=== PATIENT | male | born 1955 | race Caucasian/White ===

== ENCOUNTER 2021-05-12 18:34 | Inpatient (IN) | payer OTHER, MEDICARE ==
[~2021-05-12] VITALS: Ht 172.7 cm; Wt 84.0 kg
[2021-05-12 20:01] LABS: BASOPHILS % (AUTO) 0.7 % (0.0-2.0); EOSINOPHILS % (AUTO) 1.7 % (1.0-6.0); HEMATOCRIT 43.7 % (41-53); HEMOGLOBIN 14.8 g/dL (13.5-17.5); LYMPHOCYTES # (AUTO) 1.8 K/uL (1.0-4.8); LYMPHOCYTES % (AUTO) 31.1 % (22.0-44.0); MEAN CORPUSCULAR HEMOGLOBIN 31.1 pg (26.0-34.0); MEAN CORPUSCULAR VOLUME 91 fL (80-100); MONOCYTES # (AUTO) 0.3 K/uL (0.1-1.0); MONOCYTES % (AUTO) 5.5 % (2.0-9.0); NEUTROPHILS # (AUTO) 3.5 K/uL (1.8-7.7); PLATELET COUNT (AUTO) 191 K/uL (150-450); RED BLOOD CELL COUNT(AUTO) 4.78 MIL/uL (4.50-5.90); RED CELL DISTRIBUTION WIDTH 13.5 % (11.5-14.5)
[2021-05-12 20:08] LABS: ANION GAP 7 mmol/L (8-16); CALCIUM, TOTAL 9.1 mg/dL (8.8-10.5); CARBON DIOXIDE 26 mmol/L (22-29); CHLORIDE 104 mmol/L (98-107); CREATININE 0.73 mg/dL (0.60-1.30); GLOMERULAR FILTR. RATE CALC > 60 mL/min (>60); GLUCOSE,RANDOM 125 mg/dL (70-110); POTASSIUM 3.5 mmol/L (3.5-5.1); SODIUM SERUM 137 mmol/L (136-145); UREA NITROGEN, BLOOD 13 mg/dL (7-18)
[2021-05-12 20:14] LABS: ACETAMINOPHEN 11 mcg/mL (10-30); ALANINE AMINOTRANSFERASE 31 U/L (12-78); ALBUMIN 4.1 g/dL (3.4-5.0); ALKALINE PHOSPHATASE 71 U/L (46-116); ASPARTATE AMINOTRANSFERASE 16 U/L (15-37); BILIRUBIN,TOTAL 1.4 mg/dL (0.1-1.0); TOTAL PROTEIN, SERUM 7.4 g/dL (6.4-8.2)
[2021-05-12 20:32] LABS: SALICYLATE < 2.8 mg/dL (2.8-20.0)
[2021-05-12 20:36] LABS: COVID AG,FIA SOURCE NASOPHARYNGEAL
[2021-05-12 20:45] LABS: AMPHET/METH SCREEN,URINE NEGATIVE (NEGATIVE); BARBITURATE SCREEN, URINE NEGATIVE (NEGATIVE); BENZODIAZEPINES SCREEN,URINE NEGATIVE (NEGATIVE); CANNABINOID SCREEN,URINE NEGATIVE (NEGATIVE); COCAINE SCREEN,URINE NEGATIVE (NEGATIVE); METHADONE SCREEN, URINE NEGATIVE (NEGATIVE); OPIATE SCREEN,URINE POSITIVE (NEGATIVE); PHENCYCLIDINE SCREEN,URINE NEGATIVE (NEGATIVE)
[2021-05-12] MEDS ORDERED: LORazepam 2 MG TABLET PO PRN (22:30)
[2021-05-12] MEDS ORDERED: OLANZapine 5 MG RAPDIS TABLET PO PRN (22:30)
[2021-05-12] MEDS ORDERED: ZOLPIDEM TARTRATE 10 MG TABLET PO PRN (22:30)
[2021-05-12] MEDS ORDERED: MELATONIN 3 MG TABLET PO ONE (23:30)
[2021-05-13 00:25] LABS: CHOL/HDL RATIO 3.1 (4.2-7.3); CHOLESTEROL 152 mg/dL (131-200); HDL CHOLESTEROL 49 mg/dL (40-60); LDL CHOL (CALC.) 88 mg/dL (0-130); TRIGLYCERIDES 73 mg/dL (15-150)
[2021-05-13 00:26] LABS: APPEARANCE,URINE CLEAR (CLEAR); BILIRUBIN,URINE NEGATIVE (NEGATIVE); GLUCOSE, URINE (UA) NEGATIVE (NEGATIVE); KETONES,URINE 15 mg/dL (NEGATIVE); LEUKOCYTE ESTERASE ,URINE NEGATIVE (NEGATIVE); NITRATE,URINE NEGATIVE (NEGATIVE); OCCULT BLOOD,URINE NEGATIVE (NEGATIVE); PROTEIN,URINE NEGATIVE (NEGATIVE); UROBILINOGEN,URINE 0.2 mg/dL (<=1.0)
[2021-05-13] MEDS ORDERED: MAG HYDROX/AL HYDROX/SIMETH ES 30 ML SUSPENSION UDCUP PO PRN ×2 (15:15→15:30)
[2021-05-13] MEDS ORDERED: HydrOXYzine PAMOATE 50 MG CAPSULE PO PRN ×2 (15:15→15:30)
[2021-05-13] MEDS ORDERED: GuaiFENesin/D-METHORPHAN [SUGAR-FREE] 200-20MG/10 ML SYRUP UDCUP PO PRN ×2 (15:15→15:30)
[2021-05-13] MEDS ORDERED: TUBERCULIN, PURIFIED PROTEIN DERIVATIVE 5 TU/0.1 ML SYRINGE ID ONE ×2 (15:15)
[2021-05-13] MEDS ORDERED: ACETAMINOPHEN 325 MG TABLET PO PRN ×2 (15:15→15:30)
[2021-05-13] MEDS ORDERED: LOPERAMIDE HCL 2 MG CAPSULE PO PRN ×2 (15:15→15:30)
[2021-05-13] MEDS ORDERED: PROMETHAZINE HCL 25 MG TABLET PO PRN ×2 (15:15→15:30)
[2021-05-13] MEDS ORDERED: MAGNESIUM HYDROXIDE SUSPENSION 30 ML UDCUP PO PRN ×2 (15:15→15:30)
[2021-05-13 15:30] VITALS: BP 137/91
[2021-05-13 16:43] VITALS: BP 137/89
[2021-05-13] MEDS: THIAMINE 100 MG TABLET PO SCH (16:55)
[2021-05-13] MEDS: MIRTAZAPINE 15 MG TABLET PO SCH (20:55)
[2021-05-13] MEDS ORDERED: MIRTAZAPINE 15 MG TABLET PO SCH (21:00)
[2021-05-13] MEDS ORDERED: THIAMINE 100 MG TABLET PO SCH (21:00)
[2021-05-13] MEDS ORDERED: MELATONIN 5 MG TABLET PO ONE (22:30)
[2021-05-14] MEDS ORDERED: OMEGA-3/DHA/EPA/FISH OIL 1,000 MG CAPSULE PO SCH (09:00)
[2021-05-14] MEDS ORDERED: MULTIVITAMINS WITH MINERALS, THERAPEUTIC TABLET PO SCH (09:00)
[2021-05-14] MEDS ORDERED: FOLIC ACID 1 MG TABLET PO SCH (09:00)
[2021-05-14 09:27] VITALS: BP 145/97
[2021-05-14] MEDS: THIAMINE 100 MG TABLET PO SCH ×2 (10:35→16:47)
[2021-05-14] MEDS: FOLIC ACID 1 MG TABLET PO SCH (10:35)
[2021-05-14] MEDS: MULTIVITAMINS WITH MINERALS, THERAPEUTIC TABLET PO SCH (10:35)
[2021-05-14] MEDS: OMEGA-3/DHA/EPA/FISH OIL 1,000 MG CAPSULE PO SCH (10:35)
[2021-05-14] MEDS ORDERED: MIRT-89 PO (15:03)
[2021-05-14] MEDS ORDERED: OMEG-135 PO (15:03)
[2021-05-14] MEDS ORDERED: MELA5TAB40 PO (15:03)
[2021-05-14 16:29] VITALS: BP 144/73
[2021-05-14] MEDS: MIRTAZAPINE 15 MG TABLET PO SCH (20:15)
[2021-05-14] MEDS ORDERED: MELATONIN 5 MG TABLET PO SCH (21:00)
[2021-05-15] MEDS ORDERED: MULT-1239 PO (07:55)
[2021-05-15] MEDS ORDERED: THIA100T80 PO (07:55)
[2021-05-15] MEDS ORDERED: FOLI-130 PO (07:55)
[2021-05-15 08:19] VITALS: BP 159/77
[2021-05-15] MEDS: OMEGA-3/DHA/EPA/FISH OIL 1,000 MG CAPSULE PO SCH (08:30)
[2021-05-15] MEDS: MULTIVITAMINS WITH MINERALS, THERAPEUTIC TABLET PO SCH (08:30)
[2021-05-15] MEDS: FOLIC ACID 1 MG TABLET PO SCH (08:30)
[2021-05-15] MEDS: THIAMINE 100 MG TABLET PO SCH (08:30)
== END 2021-05-15 08:50 | disposition home or self-care (01) | DRG 881 ==
LOC: EMS 18:43 → 3EX 05-13 16:16
PROVIDERS: ADMIT Psychiatry & Neurology Psychiatry; ATTEND Psychiatry & Neurology Psychiatry
DX: F32.9 Major depressive disorder, single episode, unspecified (principal); I10 Essential (primary) hypertension; T50.902A Poisoning by unspecified drugs, medicaments and biological substances, intentional self-harm, initial encounter; Z59.9 Problem related to housing and economic circumstances, unspecified; Z63.9 Problem related to primary support group, unspecified; Z87.442 Personal history of urinary calculi; Y92.89 Other specified places as the place of occurrence of the external cause; Z79.899 Other long term (current) drug therapy; Z91.048 Other nonmedicinal substance allergy status
CPT/HCPCS: 80053; 80061; 81003; 85025; 99285; G0378; G0480; G0481; Q9967